=== PATIENT | female | born 1950 | race African-American/Black ===

== ENCOUNTER 2016-08-26 23:18 | Emergency (ER) | payer BC ==
[~2016-08-26] VITALS: Ht 167.6 cm; Wt 107.0 kg
[2016-08-27] MEDS ORDERED: TRAMADOL 50MG TABLET PO ONE (02:00)
[2016-08-27] MEDS ORDERED: IBUPROFEN 600MG TABLET PO ONE (02:00)
[2016-08-27 02:05] VITALS: BP 155/88
== END 2016-08-27 02:05 | disposition home or self-care (01) ==
LOC: ER 08-27 01:36
DX: S30.1XXA Contusion of abdominal wall, initial encounter (principal); S20.219A Contusion of unspecified front wall of thorax, initial encounter; S40.022A Contusion of left upper arm, initial encounter; V49.9XXA Car occupant (driver) (passenger) injured in unspecified traffic accident, initial encounter; Y93.89 Activity, other specified; Y99.8 Other external cause status; Y92.410 Unspecified street and highway as the place of occurrence of the external cause
CPT/HCPCS: 99283

== ENCOUNTER 2019-02-17 09:07 | Emergency (ER) | payer BC ==
[~2019-02-17] VITALS: Ht 167.6 cm; Wt 91.0 kg
[2019-02-17 09:32] VITALS: BP 174/80
[2019-02-17] MEDS ORDERED: HYDROXYZINE 25MG TABLET PO ONE (10:45)
== END 2019-02-17 11:59 | disposition home or self-care (01) ==
LOC: ER 09:07
DX: R21 Rash and other nonspecific skin eruption (principal)
CPT/HCPCS: 99282